=== PATIENT | female | born 1945 | race Caucasian/White ===

== ENCOUNTER 2018-05-24 02:51 | Inpatient (IN) | payer OTHER, MEDICARE ==
[~2018-05-24] VITALS: Ht 170.2 cm; Wt 55.3 kg
[~2018-05-24 02:51] MED LIST: AMITRIPTYLINE H10 M2 PO; ASPIRIN81 M4 PO; CARDIZEM120 M1 PO; FLONASE ALLERG9.9 ML NASB; [UNRECOGNIZED DRUG - MIXTURE] PO
--- NOTE | 2018-05-24 08:52 | Admission Core Measures ---
Acute Coronary Syndrome (CM) ACS Core Measures Acute Coronary Syndrome Diagnosis No Congestive Heart Failure (NEW) CHF Core Measures Congestive Heart Failure Diagnosis No Cerebrovascular Accident CVA Core Measures CVA/TIA Diagnosis No Venous Thromboembolism VTE Core Ric (View Protocol) VTE Risk Factors Surgery No Mechanical VTE Prophylaxis d/t N/A MechProphylax Ordered No VTE Pharm Prophylaxis d/t NA PharmProphylax ordered Problem List As ranked by this Provider includes Assessment & Plan 1. Unilateral primary osteoarthritis, right hip HOME MEDS Home Med List Amitriptyline HCl 10 MG TABLET 1 TAB PO QPM MIGRAINES (Reported) Aspirin (Aspirin*) 81 MG TAB.CHEW 1 TAB PO DAILY HEARTHEALTH (Reported) Diltiazem HCl (Cardizem) 120 MG TABLET 1 TAB PO QPM PAC (Reported) Fluticasone Propionate (Flonase Allergy Relief) 50 MCG/ACTUATION SPRAY.SUSP 2 SPRAY NASB DAILY ALLERGIES (Reported) [NORETHIN-ETH] 1 MG PO EOD HRT (Reported)
--- NOTE | 2018-05-24 08:54 | Surg Short-stay <48hrs Dis Sum ---
Visit Information Visit Dates Admission Date: 05/24/18 Discharge Date: 05/24/18 Surgical Short Stay DC Summary Admission Diagnosis: Right hip osteoarthritis Final Diagnosis: MAYTE s/p R THR Procedure(s): Right total hip replacement Summary/Significant Findings: Patient underwent an elective right total hip replacement on 05/24/[address] Ibanez. Patient tolerated the procedure well. Postoperatively she was tolerating a regular diet, voiding spontaneously, pain was well managed with oral medication and she was ambulating with physical therapy using a rolling walker. Patient was cleared for discharge. Condition at Discharge: Stable Discharge Disposition: home health services Discharge instructions provided to patient/family: Yes Post discharge follow-up plan: [address] Ibanez Copies to: Joan CHADWICK,Eduard Cadena
--- NOTE | 2018-05-24 08:57 | Patient Discharge Instructions ---
Discharge Instructions General Discharge Information You were seen/treated for: Right hip osteoarthritis You had these procedures: Right total hip replacement on 05/24/18 Watch for these problems: Fever over 100.4 Drainage from wound Redness and swelling around wound Unable to bear weight on right lower extremity Chest pain or shortness of breath Do not soak the wound: Yes No bath, but you may shower: Yes Other wound care: Keep incision clean and dry Daily dry dressing change Special Instructions: Take aspirin 81 mg twice daily to prevent clots Diet Continue normal diet: Yes Recommended Diet: Heart Healthy Activity Full Activity/No Limits: No Activity Self Limited: Yes Activity Limited to: Weight bear as tolerated (with rolling walker as needed) Acute Coronary Syndrome Inclusion Criteria At DC or during hospital stay patient has or had the following: ACS DIAGNOSIS No Discharge Core Measures Meds if any: Prescribed or Continued at Discharge Meds if any: NOT Prescribed or Continued at Discharge Congestive Heart Failure Inclusion Criteria At DC or during hospital stay patient has or had the following: CHF DIAGNOSIS No Discharge Core Measures Meds if any: Prescribed or Continued at Discharge Meds if any: NOT Prescribed or Continued at Discharge Cerebrovascular accident Inclusion Criteria At DC or during hospital stay patient has or had the following: CVA/TIA Diagnosis No Discharge Core Measures Meds if any: Prescribed or Continued at Discharge Meds if any: NOT Prescribed or Continued at Discharge Venous thromboembolism Inclusion Criteria VTE Diagnosis No VTE Type NONE VTE Confirmed by (Test) NONE Discharge Core Measures - Per Current guidelines, there needs to be overlap - treatment for the first 5 days of Warfarin therapy. - If discharged on Warfarin prior to 5 days of - overlap therapy, the patient will need to be - assessed for post discharge needs including - *Post discharge parental anticoagulation - *Warfarin and/or parental anticoagulation education - *Follow up date to check INR post discharge At least 5 days overlap therapy as Inpatient No Meds if any: Prescribed or Continued at Discharge Note: Overlap Therapy is Warfarin and Anticoagulant Meds if any: NOT Prescribed or Continued at Discharge
[2018-05-24] MEDS ORDERED: COLACE100 M1 PO (09:12)
[2018-05-24] MEDS ORDERED: ASPIRIN EC81 M1 PO (09:12)
[2018-05-24] MEDS ORDERED: OMEPRAZOLE20 M2 PO (09:12)
[2018-05-24] MEDS ORDERED: DILAUDID2 M1 PO (09:12)
[2018-05-24] MEDS ORDERED: MS CONTIN15 M3 PO (09:12)
[2018-05-24] MEDS ORDERED: MIRALAX17 G1 PO (09:14)
--- NOTE | 2018-05-24 11:09 | RADIOLOGY REPORT ---
EXAMINATION: XR HIP, RIGHT CLINICAL INFORMATION: Right total hip arthroplasty COMPARISON: None TECHNIQUE: Two views of the right hip. FINDINGS: There is a right total hip arthroplasty noted. The components are in the usual position. The exam is slightly limited in that the distal portion of the femoral stem is outside the [id number] on the crosstable lateral projection. There is air\E\gas in the soft tissues compatible with the postoperative state. IMPRESSION: Slightly limited examination as the distal stem is not included in the [id number] on the lateral projection. Otherwise exam is within normal limits Recommend repeat lateral view to allow for complete evaluation of the prosthesis and surrounding tissue
--- NOTE | 2018-05-24 11:48 | PN- Orthopedic ---
See Addendum Subjective Subjective: POST OP CHECK Patient reports parathesias in her feet. She reports pain controlled. Reports dry mouth, tolerating water. Denies chest pain, sob or voiding. Objective Vital Signs and I&Os Intake & Output 05/24 1600 05/24 0800 05/24 0000 05/23 1600 05/23 0800 05/23 0000 Intake Total Output Total Balance Patient 122 lb Weight Physical Exam: Vitals - afebrile, VSS Gen - resting comfortably in pacu in nad Cardiac - S1S2 noted Lungs - CTAB Abd - soft, nontender Ext - R hip dressing c/d/i, compartment soft, moves all extremities, motor and sensory diminished due to spinal, alps in place, no edema or calf pain Current Medications: Current Medications Sig/Marlon Start time Last Medication Dose Route Stop Time Status Admin Acetaminophen 0 .STK-MED ONE 05/24 08 DC PO Acetaminophen 975 MG ONCE 05/24 0000 NR PO 05/24 235 Cefazolin Sodium 2,000 MG ONCE 05/24 0000 NR IV 05/24 235 Midazolam HCl 0 .STK-MED ONE 05/24 0741 DC .ROUTE Oxycodone HCl 0 .STK-MED ONE 05/24 08 DC PO Oxycodone HCl 10 MG ONCE 05/24 0000 NR PO 05/24 235 Tranexamic Acid 0 .STK-MED ONE 05/24 0741 DC IV Assessment/Plan Assessment/Plan 72 F w/ a hx of PACs, osteopenia and migraines who is s/p R JAY with diminished sensation secondary to spinal, awaiting PT eval PT eval, WBAT Advance to cardiac diet, IVF Postop abx - ancef x2 Pain regimen prn DVT ppx - alps, teds, asa 81 bid Home meds ordered Monitor postop void D/c meds/instructions explained in detail Anticipate d/c today pending PT eval, postop void Core Measures Venous Thromboembolism VTE Risk Factors Surgery No Mechanical VTE Prophylaxis d/t N/A MechProphylax Ordered No VTE Pharm Prophylaxis d/t NA PharmProphylax ordered
[2018-05-24 12:05] VITALS: BP 118/80
[2018-05-24 15:18] VITALS: BP 112/60
--- NOTE | 2018-05-24 15:44 | Operative Report ---
Operative/Inv Procedure Report Surgery Date: 05/24/18 Name of Procedure: Right total hip replacement Pre-Operative Diagnosis: Primary right hip DJD Post-Operative Diagnosis: Same Estimated Blood Loss: 250 Surgeon/Orthopedic Designer: Marcelle CHADWICK,Roland Fregoso Anesthesia: block Operative/Procedure Note Note: Description of Procedure: The patient was taken to the operating room and positively identified. After induction of spinal anesthesia and administration of appropriate pre-operative antibiotics, the patient was positioned supine on the operating room table and all bony prominences were well padded. After performing a surgical timeout, the right lower extremity was prepped and draped in the usual sterile fashion. A direct anterior approach was made to the right hip. The incision was carried sharply through superficial soft tissues to the level of the fascia. Meticulous hemostasis was maintained with Bovie electocautery. The fascia over the tensor fascia cami muscle was opened sharply and the interval between the TFL and the sartorius was entered bluntly taking care to stay lateral to the lateral femoral cutaneous nerve. Retractors were placed around the femoral neck and the pericapsular fat was identified. The ascending branches of the lateral femoral circumflex vessels were identified and carefully coagulated. The pericapsular fat and anterior capsule were then resected. A napkin ring osteotomy was performed and the femoral head was removed without difficulty. Attention was then turned to the acetabulum. After appropriate placement of retractors, the acetabulum was exposed. Soft tissue was cleaned from the acetabular margin and notch. Overhanging osteophytes were removed and the teardrop was exposed. The acetabulum was then sequentially reamed to accept a 52 mm Ranjith Tritanium hemispherical solid shell. This was impacted into place in the appropriate position and fitted with a 32 mm Trident X3 zero degree polyethylene insert. Attention was then turned to the femur. After performing the appropriate ligament releases, the proximal femur was exposed. It was then sequentially broached to accept a size #4 [place] Accolade 2 stem. This was trialed for leg length and stability. The trial component was removed and the final component was impacted into place. The trunnion was carefully cleaned and fit with a 32 mm, +0 Biolox delta ceramic femoral head. The hip was reduced and put through a full range of motion and found to be stable. The articular space was then irrigated with sterile saline. The periarticular soft tissues were infilitrated with Marcaine. The fascial layer was closed with interrupted #1 vicryl suture and the skin was re-approximated with interrupted 2 -0 vicryl. The skin was closed with a running 3-0 V-Lock suture. Steri-strips and a sterile dressing were applied. The patient was awakened and taken to the recovery room in satisfactory condition.
== END 2018-05-24 15:51 | disposition home health service (06) | DRG 470 ==
LOC: SDA 02:51 → ENRESERV 10:50 → ENTRNSPT 11:51 → EDTRNSPTSTS 11:56 → EDTRNSPT 11:56 → CMPTRNSPT 11:58 → 2NA 12:02 → ENPENDDIS 14:41 → 2NA 15:51
PROC: 0SR904A Replacement of Right Hip Joint with Ceramic on Polyethylene Synthetic Substitute, Uncemented, Open Approach (ICD-10-PCS; principal; 2018-05-24)
DX: M16.11 Unilateral primary osteoarthritis, right hip (principal); M85.80 Other specified disorders of bone density and structure, unspecified site; I49.1 Atrial premature depolarization; G43.909 Migraine, unspecified, not intractable, without status migrainosus; Z85.828 Personal history of other malignant neoplasm of skin; Z90.49 Acquired absence of other specified parts of digestive tract
CPT/HCPCS: 2NASP; 73502-RT; 97116-GO; 97161-GP; J0131; J0690; J0735; J7042